=== PATIENT | female | born 1945 | race American Indian/Alaskan Native ===

== ENCOUNTER 2018-04-06 18:04 | Emergency (ER) | payer OTHER, MEDICARE ==
[~2018-04-06] VITALS: Ht 152.4 cm; Wt 82.7 kg
[~2018-04-06 18:04] MED LIST: ALPR0.5T9 PO; HYDR-3964 PO; LEVO88TA7 PO; ONDA4TAB6 PO; PANT-47 PO; PANT40TA4 PO; SIMV20TA5 PO
--- NOTE | 2018-04-06 18:34 | NUR ---
contacted , Terell Henson, at [phone] cell, he will be coming to see pt, CHP at bedside and said chikis was at [facility] Artem [phone]
[2018-04-06] MEDS ORDERED: morphine 2 MG/ML inj. syringe IV PRN (19:30)
[2018-04-06] MEDS ORDERED: ibuprofen 200mg tablet PO ONE (22:15)
[2018-04-06 22:34] VITALS: BP 132/79
== END 2018-04-06 22:39 | disposition home or self-care (01) ==
LOC: ER 18:04
DX: S16.1XXA Strain of muscle, fascia and tendon at neck level, initial encounter (principal); M54.5 Low back pain; E78.00 Pure hypercholesterolemia, unspecified; K21.9 Gastro-esophageal reflux disease without esophagitis; E03.9 Hypothyroidism, unspecified; M19.90 Unspecified osteoarthritis, unspecified site; F17.200 Nicotine dependence, unspecified, uncomplicated; Z88.0 Allergy status to penicillin; Z88.5 Allergy status to narcotic agent; Z88.6 Allergy status to analgesic agent; Z79.899 Other long term (current) drug therapy; V49.69XA Unspecified car occupant injured in collision with other motor vehicles in traffic accident, initial encounter; Y93.89 Activity, other specified; Y92.488 Other paved roadways as the place of occurrence of the external cause; Y99.8 Other external cause status
CPT/HCPCS: 70450; 72125; 96374; 99284; J2270